=== PATIENT | female | born 1990 | race Hispanic/Latino ===

== ENCOUNTER 2024-12-24 09:39 | Observation (INO) | payer SELFPAY ==
[~2024-12-24] VITALS: Ht 154.9 cm; Wt 71.7 kg
[2024-12-24] VITALS (14 sets, daily range): BP systolic 103–113; BP diastolic 66–77; PULSE 69–89; RESP 15–19; TEMP 97.7–98.8; O2SAT 100
[2024-12-24] MEDS ORDERED: IRON PO (10:03)
[2024-12-24 10:17] LABS: BASOPHILS % 0.5 % (0.0-1.0); EOSINOPHILS % 2.0 % (0.0-6.0); LYMPHOCYTES % 24.1 % (18.0-39.1); MONOCYTES % 5.4 % (4.4-11.3); NEUTROPHILS % 67.7 % (38.7-80.0); RED CELL DISTRIBUTION WIDTH 18.8 % (11.7-14.4)
[2024-12-24] MEDS: SODIUM CHLORIDE 0.9% 1000ML 1,000 ML IV STA (10:29)
[2024-12-24 10:31] LABS: INR 0.98
[2024-12-24 10:41] LABS: EST GLOMERULAR FILTRATION RATE 117 ML/MIN (>=60)
[2024-12-24 11:22] LABS: AMPHETAMINES SCREEN,URINE NEGATIVE (NEGATIVE); CANNABINOIDS SCREEN,URINE NEGATIVE (NEGATIVE); COCAINE SCREEN,URINE NEGATIVE (NEGATIVE); LEUKOCYTE ESTERASE ,URINE NEGATIVE (NEGATIVE); METHADONE SCREEN, URINE NEGATIVE (NEGATIVE); OPIATES SCREEN,URINE NEGATIVE (NEGATIVE); PROTEIN,URINE DIPSTICK NEGATIVE (NEGATIVE); URINE UROBILINOGEN 0.2 mg/dL (0.2 - 1)
[2024-12-24] MEDS ORDERED: ONDANSETRON HCL INJ 2MG/ML 2ML 2 MG/ML VIAL IV PRN ×2 (11:30→12:15)
[2024-12-24] MEDS: SODIUM CHLORIDE 0.9% 1000ML 1,000 ML IV SCH (11:30)
[2024-12-24 11:35] LABS: EPITHELIAL CELLS,URINE MODERATE /LPF
[2024-12-24] MEDS ORDERED: IOPAMIDOL 370 MG/ML 100 ML INFUS..BTL INJ ONE (12:36)
[2024-12-24] MEDS: ACETAMINOPHEN 325 MG TAB PO PRN (14:51)
[2024-12-24] MEDS: FUROSEMIDE INJ 10 MG/ML 4 ML VIAL IV ONE (23:22)
[2024-12-25] VITALS: BP 109/74; PULSE 64; RESP 17; TEMP 98.3; O2SAT 100
[2024-12-25 04:00] VITALS: BP 105/71; PULSE 71; RESP 17; TEMP 98.5; O2SAT 100
[2024-12-25 06:47] LABS: BASOPHILS % 0.9 % (0.0-1.0); EOSINOPHILS % 2.3 % (0.0-6.0); LYMPHOCYTES % 25.7 % (18.0-39.1); MONOCYTES % 7.3 % (4.4-11.3); NEUTROPHILS % 63.5 % (38.7-80.0); RED CELL DISTRIBUTION WIDTH 19.9 % (11.7-14.4)
[2024-12-25] MEDS: SODIUM CHLORIDE 0.9% 250ML 250 ML ONE (07:07)
[2024-12-25 07:25] LABS: EST GLOMERULAR FILTRATION RATE 116.0 ML/MIN (>=60)
[2024-12-25 07:45] VITALS: BP 102/70; PULSE 68; RESP 18; TEMP 97.9; O2SAT 100
[2024-12-25 08:02] VITALS: BP 102/70; PULSE 68; RESP 18; TEMP 97.9; O2SAT 100
[2024-12-25 11:45] VITALS: BP 112/76; PULSE 62; RESP 18; TEMP 98; O2SAT 100
== END 2024-12-25 15:11 | disposition home or self-care (01) ==
LOC: ER 09:48 → ERHOLD 11:25 → MED/SURG3 12:25
PROVIDERS: ADMIT Internal Medicine; ATTEND Internal Medicine
DX: D50.0 Iron deficiency anemia secondary to blood loss (chronic) (principal); N92.0 Excessive and frequent menstruation with regular cycle
CPT/HCPCS: 36415 ×2; 36430; 71045; 74177; 80048; 80053; 80307; 81001; 82550; 83735; 84443; 84484; 84702; 85025 ×2; 85379; 85610; 85730; 86850; 86900; 86920; 93005; 99284; G0378 ×2; J1938; J2470; J7030; J7050; P9016; Q9967